=== PATIENT | female | born 1990 | race Caucasian/White ===

== ENCOUNTER 2016-07-26 03:37 | Emergency (ER) | payer SELFPAY ==
[~2016-07-26] VITALS: Ht 157.5 cm; Wt 84.1 kg
[2016-07-26 04:45] VITALS: BP 129/82
[2016-07-26] MEDS ORDERED: DiphenhydrAMINE HCL 50 MG CAPSULE PO ONE (04:45)
== END 2016-07-26 04:46 | disposition home or self-care (01) ==
LOC: EMS 03:39
DX: T78.40XA Allergy, unspecified, initial encounter (principal); R21 Rash and other nonspecific skin eruption; X58.XXXA Exposure to other specified factors, initial encounter; Z88.1 Allergy status to other antibiotic agents
CPT/HCPCS: 81025; 99282

== ENCOUNTER 2019-01-21 08:51 | Emergency (ER) | payer SELFPAY ==
[~2019-01-21] VITALS: Ht 160 cm; Wt 90.9 kg
[2019-01-21] MEDS ORDERED: birth control PO (09:01)
[2019-01-21] MEDS ORDERED: IBUPROFEN 600 MG TABLET PO ONE (09:15)
[2019-01-21] MEDS ORDERED: ACETAMINOPHEN 500 MG TABLET PO ONE (09:15)
[2019-01-21] MEDS ORDERED: PERTUSS(ACELL),DIPH,TET VAC/PF 0.5 ML VIAL IM ONE (11:45)
[2019-01-21 11:58] VITALS: BP 130/80
== END 2019-01-21 11:59 | disposition home or self-care (01) ==
LOC: EMS 08:56
DX: S90.31XA Contusion of right foot, initial encounter (principal); S90.811A Abrasion, right foot, initial encounter; Z88.1 Allergy status to other antibiotic agents; W18.39XA Other fall on same level, initial encounter; Y93.89 Activity, other specified; Y92.89 Other specified places as the place of occurrence of the external cause; Y99.8 Other external cause status
CPT/HCPCS: 90471; 90715